=== PATIENT | female | born 1940 | race Caucasian/White ===

== ENCOUNTER 2018-03-16 21:17 | Inpatient (IN) | payer OTHER ==
[~2018-03-16] VITALS: Ht 152.4 cm; Wt 109.9 kg
--- NOTE | 2018-03-16 21:17 | NUR ---
TO BED 6 BIB PARAMEDICS C/O SOB SINCE EARLIER TODAY. PER EMS REPORT PT O2 SAT 88% ON RA. PLACE PT ON CARDIAC MONITORING, CONTINUOUS POX, O2@15L/NONREBREATHER MASK. LUNG SOUNDS DEMINISHED BILATERALLY. ER MD AT BEDSIDE TO EVAL PT WITH ORDERS RECEIVED. WILL CARRY OUT ORDERS.
--- NOTE | 2018-03-16 21:36 | NUR ---
RT AT BEDSIDE TO PLACE PT ON BIPAP.
--- NOTE | 2018-03-16 21:43 | NUR ---
EKG AT BEDSIDE.
[2018-03-16 21:45] VITALS: BP 157/72
--- NOTE | 2018-03-16 21:45 | NUR ---
PT REC'D ON NRB MASK 15LPM. PT ALERT AND AWAKE, SOB NOTED. EXPIRATORY WHEEZES HEARD ON AUSCULTATION. PT PLACED ON BIPAP PER DR PINO REQUEST. ALARMS ARE SET AND AUDIBLE. BIPAP PLUGGED INTO RED OUTLET. AMBU BAG BEDSIDE. WILL CONTINUE TO MONITOR Addendum: 03/16/18 at 2318 by AUGUSTIN WISE RT Amended: Links added.
--- NOTE | 2018-03-16 21:45 | NUR ---
PT ON BIPAP 15/5, RATE-16, FIO2-70%. WILL CONTINUE TO MONITOR PT CLOSELY. PT FAMILY MEMBERS AT BEDSIDE.
--- NOTE | 2018-03-16 21:45 | NUR ---
Poncho donald in EDM - 03/16/18 at 2154 by AQUILINO PT ON BIPAP 15/, RATE-60, FIO2-70%. WILL CONTINUE TO MONITOR PT CLOSELY. PT FAMILY MEMBERS AT BEDSIDE.
[2018-03-16 22:03] LABS: BASOPHILS % (AUTO) 0.6 % (0.0-2.0); EOSINOPHILS % (AUTO) 1.5 % (0.0-6.0); HEMATOCRIT 38 % (33-45); HEMOGLOBIN 12.2 g/dL (11.5-14.8); LYMPHOCYTES # (AUTO) 1.4 /CMM (0.8-4.8); MEAN CORPUSCULAR HEMOGLOBIN 28 PG (26.0-33.0); MEAN CORPUSCULAR HGB CONC 32 g/dl (31.0-36.0); MEAN CORPUSCULAR VOLUME 86 fL (82-100); MONOCYTES # (AUTO) 0.4 /CMM (0.1-1.30); MONOCYTES % (AUTO) 6.3 % (2.0-12.0); NEUTROPHILS # (AUTO) 4.6 /CMM (1.8-8.9); NEUTROPHILS % (AUTO) 70.6 % (43.0-81.0); PLATELET COUNT (AUTO) 145 /CMM (150-450); RDW COEFFICIENT OF VARIATION 16.1 (11.5-15.0); RED BLOOD CELL COUNT(AUTO) 4.42 MIL/uL (4.0-5.2); WHITE BLOOD COUNT (AUTO) 6.6 K/uL (4.3-11.0)
[2018-03-16 22:17] LABS: CALCIUM, SERUM 8.4 mg/dL (8.5-10.1); CARBON DIOXIDE 30 mmol/L (21-32); CHLORIDE 99 mmol/L (98-107); CREATININE 1.1 mg/dL (0.6-1.3); GLUCOSE 139 mg/dL (74-106); POTASSIUM 3.9 mmol/L (3.5-5.1); SODIUM SERUM 136 mmol/L (136-145); UREA NITROGEN, BLOOD 18 mg/dL (7-18)
[2018-03-16 22:27] LABS: TROPONIN I < 0.017 ng/mL (0.00-0.056)
[2018-03-16 22:29] LABS: ALANINE AMINOTRANSFERASE 18 U/L (12-78); ALBUMIN 3.1 g/dL (3.4-5.0); ALKALINE PHOSPHATASE 83 U/L (46-116); ASPARTATE AMINOTRANSFERASE 25 U/L (15-37); B-TYPE NATRIURETIC PEPTIDE 3056 PG/ML (0-125); BILIRUBIN,DIRECT 0.1 mg/dL (0.0-0.2); BILIRUBIN,TOTAL 0.6 mg/dL (0.2-1.0); TOTAL PROTEIN, SERUM 7.2 g/dL (6.4-8.2)
[2018-03-16 22:30] LABS: INR 1.54 (0.87-1.13)
[2018-03-16] MEDS ORDERED: ACETAMINOPHEN 325 MG TABLET PO ONE (22:30)
--- NOTE | 2018-03-16 22:43 | NUR ---
ABG DONE. RT REMOVED PT FROM BIPAP PER ER MD ORDER. WILL CONTINUE TO MONITOR PT CLOSELY.
--- NOTE | 2018-03-16 22:45 | NUR ---
ABG GIVEN TO DR BOUCHER. BIPAP TAKEN OFF AND PLACED PT ON 4LNC PER DR BOUCHER REQUEST Addendum: 03/17/18 at 0426 by AUGUSTIN WISE RT Amended: Links added.
--- NOTE | 2018-03-16 22:45 | NUR ---
PT TRANSPORTED TO RADIOLOGY FOR CT PULMONARY ANGIOGRAM.
[2018-03-16 22:46] LABS: ABG BASE EXCESS 2.1 mmol/L; ABG OXYGEN SATURATION 98.9 % (92.0-98.5); ABG PCO2 42.1 mmHg (35.0-45.0); ABG PH 7.421 (7.350-7.450); ABG PO2 236.9 mmHg (75.0-100.0); AaDO2 216.9 mmHg; COHb 0.3 % (0.5-1.5); MetHb 0.5 % (0.0-1.5); O2Hb 98.1 % (94.0-97.0); SITE, ABG Right Radial; VENT MODE, BG Bipap 15/5 BR16 70%
[2018-03-16] MEDS ORDERED: IOHEXOL-350 100 ML VIAL IV ONE (22:47)
[2018-03-16] MEDS ORDERED: CT SWABBABLE VALVE TRANS SET 1 EA INFUS.SET MC ONE (22:47)
[2018-03-16] MEDS ORDERED: IV NS 0.9% 250 ML IV ONE (22:48)
[2018-03-16] MEDS ORDERED: ACETAMINOPHEN ES 500 MG TABLET ONE (22:49)
--- NOTE | 2018-03-17 00:02 | NUR ---
REPORT CALLED TO QUALITY CONTROL ANALYSTPAPITO MORSE. WILL TRANSPORT PT VIA ACLS PROTOCOL.
--- NOTE | 2018-03-17 00:05 | NUR ---
ER TALKING TO TED LANCASTER REGARDING PT ADMISSION. WILL TRANSPORT PT VIA ACLS PROTOCOL.
--- NOTE | 2018-03-17 00:10 | NUR ---
RN NOTES RECEIVED PT. FROM ER WITH DX. OF SOB, A/OX3, PRYDEINIG/JAMAICAN SPEAKING, FAMILY AT BEDSIDE, A-FIB ON TELE MONITOR , ADMISSION INSTRUCTION WAS RENDERED, CALL LIGHT WITHIN REACH, [id number], CONTINUE TO MONITOR
[2018-03-17 00:20] VITALS: BP 136/63
[2018-03-17] MEDS ORDERED: Z GUARD REMEDY 2 OZ OINT TP PRN (00:30)
[2018-03-17] MEDS ORDERED: HYDROCODONE/APAP 5/325MG 1 EACH TABLET PO PRN (00:30)
[2018-03-17] MEDS ORDERED: MAGNESIUM HYDROXIDE 30 ML UDC PO PRN (00:30)
[2018-03-17] MEDS ORDERED: MAG HYDROX/AL HYDROX/SIMETH 30 ML UDC PO PRN (00:30)
[2018-03-17] MEDS ORDERED: ONDANSETRON HCL/PF 4 MG/2 ML VIAL IVP PRN (00:30)
[2018-03-17] MEDS ORDERED: WARF4TAB72 PO (00:52)
[2018-03-17] MEDS ORDERED: METO-356 PO (00:52)
[2018-03-17] MEDS ORDERED: LEVO137T24 PO (00:52)
[2018-03-17 04:00] VITALS: BP 142/84
[2018-03-17] MEDS: ACETAMINOPHEN 325 MG TABLET PO PRN (05:59)
--- NOTE | 2018-03-17 06:09 | NUR ---
RN NOTES COMPLAINED OF HEADACHE-TYLENOL 650MG PO GIVEN ORDERED, V/S STABLE
--- NOTE | 2018-03-17 06:27 | NUR ---
RN NOTES AWAKE, DENIES PAIN, NO SOB, MORNING CARE RENDERED, PT. NEEDS ATTENDED
--- NOTE | 2018-03-17 07:49 | NUR ---
TRACK RIDER OPENING NOTES RECEIVED PT FROM NIGHTSOHFT NURSE IN STABLE CONDITION. PT IS A/O X3. SHE DENIES AN SOB OR DIFFICULTY BREATHING AT THIS TIME. NO OF ACUTE DISTRESS NOTED. BREATHING IS EVEN AND UNLABORED. PT ON 2L VIA NC AND SATING AT ABOVE 92%. SHE COMPLAINS OF A SLIGHT HEADACHE AND WAS GIVEN TYLENOL BY THE NIGHTSOHFT NURSE. NORCO 5/325 OFFERED TO THE PT HOWEVER SHE REFUSES MEDICATION STATING "I CAN TOLERATE IT FOR NOW. I DON'T WANT TO TAKE TOO MANY PILLS". PT INSTRUCTED TO NOTIFY ME IF PAIN BECOMES INTOLERABLE AND/OR IF/WHEN SHE WOULD LIKE THE MEDICATION. PT VERBALIZED UNDERSTANDING AND IN COMPLIANCE. IVS TO RIGHT HAND AND LEFT AC ARE BOTH NOTED TO BE PATENT AND INTACT, HL. NO REDNESS OR SIGNS OF INFILTRATION NOTED. BED IN LOW LOCKED POSITION, SIDE RAILS UP X2, CALL LIGHT WITHIN REACH. WILL CONTINUE TO MONITOR Addendum: 03/17/18 at 1028 by CODY KAPADIA RN PT ANGELA IN TELE MONITOR WITH A HR OF 67
[2018-03-17 08:00] VITALS: BP 141/69
[2018-03-17 09:07] LABS: PHOSPHORUS 4.1 mg/dL (2.5-4.9)
[2018-03-17] MEDS: LEVOTHYROXINE SODIUM 137 MCG TABLET PO SCH (09:41)
[2018-03-17] MEDS: FUROSEMIDE 40 MG/4 ML VIAL IV SCH ×3 (09:43→17:06)
[2018-03-17] MEDS: METOPROLOL SUCCINATE 25 MG TAB.SR.24H PO SCH (09:44)
[2018-03-17 16:00] VITALS: BP 118/78
[2018-03-17] MEDS ORDERED: RIVAROXABAN 10 MG TABLET PO SCH (17:00)
[2018-03-17] MEDS: RIVAROXABAN 15 MG TABLET PO SCH (17:12)
--- NOTE | 2018-03-17 18:40 | NUR ---
QUALITY ASSURANCE ANALYST CLOSING NOTES PT REMAINS STABLE. ALL NEEDS WERE MET DURING SHIFT AND ORDERS CARRIED OUT ACCORDINGLY. ALL DUE MEDS. GIVEN. NO ACUTE CHANGES IN CONDITION THROUGHOUT SHIFT. NO SOB NOTED AT THIS TIME. VITALS REMAIN STABLE. SHE REMAINS AFIB ON THE TELE MONITOR. SAFETY MEASURES REMAIN IN PLACE. WILL ENDORSE TO NIGHTSHIFT NURSE FOR AILYN
--- NOTE | 2018-03-17 19:26 | NUR ---
INFORMATICS DEVELOPER OPENING NOTES PT A/O X3 .FAMILY AT THE BED SITE.NO SOB NOTED AT THIS TIME, NO DISTRESS NOTED ,VITALS ARE STABLE. PT DENIES PAIN AT THIS TIME. AFIB ON THE TELE MONITOR. SAFETY MEASURES IN PLACE.CALL LIGHT WITHIN REACH. WILL CONTINUE TO MONITOR
[2018-03-17 20:00] VITALS: BP 101/57
--- NOTE | 2018-03-17 20:09 | NUR ---
Spoke with patient, she is alert, lives locally with her daughter. She ambulates with a cane as needed, she is semi-independent with adl's. Has no homehealth reported. Pcp is Dr. Kaley Kaiser in [place]. Has good family support. Her family will provide ride when discharge. Addendum: 03/17/18 at 2009 by LEV HENLEY RN Amended: Links added.
[2018-03-18] VITALS: BP 103/56
[2018-03-18 04:04] VITALS: BP 157/77
[2018-03-18 06:56] LABS: BASOPHILS % (AUTO) 0.5 % (0.0-2.0); EOSINOPHILS % (AUTO) 0.2 % (0.0-6.0); HEMATOCRIT 42 % (33-45); HEMOGLOBIN 13.4 g/dL (11.5-14.8); LYMPHOCYTES % (AUTO) 34.7 % (20.0-44.0); MEAN CORPUSCULAR HEMOGLOBIN 28 PG (26.0-33.0); MEAN CORPUSCULAR HGB CONC 32 g/dl (31.0-36.0); MEAN CORPUSCULAR VOLUME 86 fL (82-100); MONOCYTES # (AUTO) 0.6 /CMM (0.1-1.30); MONOCYTES % (AUTO) 11.2 % (2.0-12.0); NEUTROPHILS % (AUTO) 53.4 % (43.0-81.0); PLATELET COUNT (AUTO) 126 /CMM (150-450); RDW COEFFICIENT OF VARIATION 16.8 (11.5-15.0); WHITE BLOOD COUNT (AUTO) 5.6 K/uL (4.3-11.0)
--- NOTE | 2018-03-18 07:03 | NUR ---
RN CLOSING NOTES PT A/O X2 .NO SOB NOTED AT THIS TIME, NO DISTRESS NOTED ,O2 SATURATION 97 ON 4L NC. PT DENIES PAIN AT THIS TIME. AFIB ON THE TELE MONITOR WITH HR 87. SAFETY MEASURES IN PLACE.CALL LIGHT WITHIN REACH. WILL ENDORSE TO NEXT SHIFT
[2018-03-18 07:22] LABS: ALANINE AMINOTRANSFERASE 19 U/L (12-78); ALBUMIN 3.2 g/dL (3.4-5.0); ALKALINE PHOSPHATASE 80 U/L (46-116); ASPARTATE AMINOTRANSFERASE 26 U/L (15-37); BILIRUBIN,TOTAL 0.5 mg/dL (0.2-1.0); CARBON DIOXIDE 37 mmol/L (21-32); CHLORIDE 97 mmol/L (98-107); CREATININE 1.2 mg/dL (0.6-1.3); GLUCOSE 107 mg/dL (74-106); MAGNESIUM 1.8 mg/dL (1.8-2.4); PHOSPHORUS 4.6 mg/dL (2.5-4.9); POTASSIUM 3.4 mmol/L (3.5-5.1); SODIUM SERUM 138 mmol/L (136-145); TOTAL PROTEIN, SERUM 7.9 g/dL (6.4-8.2); UREA NITROGEN, BLOOD 19 mg/dL (7-18)
[2018-03-18 07:29] LABS: TROPONIN I < 0.017 ng/mL (0.00-0.056)
[2018-03-18 07:34] LABS: CHOLESTEROL 167 mg/dL (<200); HDL CHOLESTEROL 57 mg/dL (40-60); LDL 102 mg/dL (0-99); THYROID STIMULATING HORMONE 0.541 uIU/mL (0.358-3.74); TRIGLYCERIDES 64 mg/dL (30-150)
--- NOTE | 2018-03-18 07:41 | NUR ---
HEARING AID MECHANIC OPENING NOTE RECEIVED BEDSIDE SBAR REPORT ON THE PATIENT. PATIENT IS A/O X3, MALTESE SPEAKING, AWAKE AND RESPONSIVE IN BED. BED IS LOCKED IN LOWEST POSITION, SIDE RAILS UP X3, BED ALARM IS ON. CALL LIGHT WITHIN REACH. PATIENT EDUCATED TO USE THE CALL LIGHT TO CALL FOR ASSISTANCE AND VERBALIZED UNDERSTANDING. EXTERNAL NOVELTY WORKER READING AFIB 86. CHEST RISING EQUALLY/BILATERALLY. SPO2 96% ON 2L O2 VIA NC. ALL NEEDS ARE MET. WILL CONTINUE TO ASSES/MONITOR THROUGHOUT THE SHIFT.
[2018-03-18 08:00] VITALS: BP 125/60
[2018-03-18 08:20] LABS: CALCIUM, SERUM 9.3 mg/dL (8.5-10.1)
[2018-03-18] MEDS: METOPROLOL SUCCINATE 25 MG TAB.SR.24H PO SCH (09:00)
[2018-03-18] MEDS: LEVOTHYROXINE SODIUM 137 MCG TABLET PO SCH (09:00)
[2018-03-18] MEDS: POTASSIUM CHLORIDE 20 MEQ TAB.PRT.SR PO SCH ×3 (09:05→11:34)
[2018-03-18] MEDS: FUROSEMIDE 40 MG/4 ML VIAL IV SCH ×3 (09:06→17:31)
[2018-03-18 16:00] VITALS: BP 102/63
--- NOTE | 2018-03-18 16:53 | NUR ---
RECEIVED TELEPHONE ORDER FOR PHYSICIAN CONSULT WITH ID. READ BACK AND VERIFIED.
[2018-03-18] MEDS: SOD FERRIC GLUC 125 MG in IV NS 0.9% 100 ML IV SCH (17:31)
[2018-03-18] MEDS: RIVAROXABAN 15 MG TABLET PO SCH (17:32)
[2018-03-18] MEDS: DOXYCYCLINE HYCLATE (100 MG) 100 MG TABLET PO SCH (19:27)
--- NOTE | 2018-03-18 19:30 | NUR ---
MS RN OPENING NOTES PATIENT IS A/O X3, GRANDSON AT THE BEDSIDE.PT ON NC 4L SATURATION 98%. NO SOB S/S RESPIRATORY DISTRESS OR PAIN AT THIS TIME. BED IS LOCKED IN LOWEST POSITION, SIDE RAILS UP X2, BED ALARM IS ON. CALL LIGHT WITHIN REACH. WILL CONTINUE TO MONITOR.
[2018-03-18] MEDS: AZTREONAM 1 G in IV NS 0.9% 100 ML IV SCH (19:32)
[2018-03-18 20:00] VITALS: BP 104/52
--- NOTE | 2018-03-18 20:02 | NUR ---
MS RN CLOSING NOTE GAVE BEDSIDE SBAR REPORT ON THE PATIENT. PATIENT IS A/O X3, SLOVENIAN SPEAKING, AWAKE AND RESPONSIVE IN BED. BED IS LOCKED IN LOWEST POSITION, SIDE RAILS UP X3, BED ALARM IS ON. CALL LIGHT WITHIN REACH. PATIENT EDUCATED TO USE THE CALL LIGHT TO CALL FOR ASSISTANCE AND VERBALIZED UNDERSTANDING. CHEST RISING EQUALLY/BILATERALLY. SPO2 99% ON ROOM AIR. DENIES PAIN/DISCOMFORT AT THIS TIME. ALL NEEDS ARE MET. ENDORSED TO THE MEDICAL ART THERAPIST NURSE FOR AILYN.
[2018-03-19] MEDS: AZTREONAM 1 G in IV NS 0.9% 100 ML IV SCH ×2 (04:23→13:05)
--- NOTE | 2018-03-19 06:45 | NUR ---
MS RN CLOSING NOTES PATIENT IS A/O X3, AUSTRIAN SPEAKING.PT ON NC 4L SATURATION 97%. NO SOB S/S RESPIRATORY DISTRESS OR PAIN AT THIS TIME. BED IS LOCKED IN LOWEST POSITION, SIDE RAILS UP X2, BED ALARM IS ON. CALL LIGHT WITHIN REACH. WILL ENDORSE TO NEXT SHIFT FOR AILYN.
--- NOTE | 2018-03-19 07:12 | NUR ---
MS RN OPENING NOTE RECEIVED BEDSIDE SBAR REPORT ON THE PATIENT. PATIENT IS A/O X3, FIJIAN SPEAKING, AWAKE AND RESPONSIVE IN BED. BED IS LOCKED IN LOWEST POSITION, SIDE RAILS UP X3, BED ALARM IS ON. CALL LIGHT WITHIN REACH. PATIENT EDUCATED TO USE THE CALL LIGHT TO CALL FOR ASSISTANCE AND VERBALIZED UNDERSTANDING. SPO2 96% ON 2L O2 VIA NC. ALL NEEDS ARE MET. WILL CONTINUE TO ASSES/MONITOR THROUGHOUT THE SHIFT.
[2018-03-19 07:45] LABS: BASOPHILS % (AUTO) 0.6 % (0.0-2.0); EOSINOPHILS % (AUTO) 3.2 % (0.0-6.0); HEMATOCRIT 40 % (33-45); HEMOGLOBIN 12.8 g/dL (11.5-14.8); LYMPHOCYTES # (AUTO) 2.3 /CMM (0.8-4.8); LYMPHOCYTES % (AUTO) 42.3 % (20.0-44.0); MEAN CORPUSCULAR HEMOGLOBIN 28 PG (26.0-33.0); MEAN CORPUSCULAR HGB CONC 32 g/dl (31.0-36.0); MEAN CORPUSCULAR VOLUME 87 fL (82-100); MONOCYTES # (AUTO) 0.7 /CMM (0.1-1.30); MONOCYTES % (AUTO) 13.5 % (2.0-12.0); NEUTROPHILS # (AUTO) 2.2 /CMM (1.8-8.9); NEUTROPHILS % (AUTO) 40.4 % (43.0-81.0); PLATELET COUNT (AUTO) 141 /CMM (150-450); RDW COEFFICIENT OF VARIATION 16.1 (11.5-15.0); RED BLOOD CELL COUNT(AUTO) 4.64 MIL/uL (4.0-5.2); WHITE BLOOD COUNT (AUTO) 5.4 K/uL (4.3-11.0)
[2018-03-19 08:00] VITALS: BP 112/47
[2018-03-19 08:01] LABS: ALANINE AMINOTRANSFERASE 20 U/L (12-78); ALKALINE PHOSPHATASE 69 U/L (46-116); ASPARTATE AMINOTRANSFERASE 29 U/L (15-37); BILIRUBIN,TOTAL 0.5 mg/dL (0.2-1.0); CALCIUM, SERUM 8.7 mg/dL (8.5-10.1); CARBON DIOXIDE 35 mmol/L (21-32); CHLORIDE 99 mmol/L (98-107); CREATININE 1.7 mg/dL (0.6-1.3); GLUCOSE 115 mg/dL (74-106); MAGNESIUM 1.7 mg/dL (1.8-2.4); PHOSPHORUS 3.7 mg/dL (2.5-4.9); POTASSIUM 4.1 mmol/L (3.5-5.1); SODIUM SERUM 138 mmol/L (136-145); TOTAL PROTEIN, SERUM 7.4 g/dL (6.4-8.2); UREA NITROGEN, BLOOD 34 mg/dL (7-18)
[2018-03-19] MEDS: DOXYCYCLINE HYCLATE (100 MG) 100 MG TABLET PO SCH ×2 (09:31→21:01)
[2018-03-19] MEDS: LEVOTHYROXINE SODIUM 137 MCG TABLET PO SCH (09:31)
[2018-03-19] MEDS: METOPROLOL SUCCINATE 25 MG TAB.SR.24H PO SCH (09:32)
[2018-03-19] MEDS ORDERED: GUAIFENESIN 300 MG/15 ML UDC PO PRN (10:00)
[2018-03-19] MEDS ORDERED: MAGNESIUM OXIDE 400 MG TABLET PO ONE (12:00)
[2018-03-19 16:00] VITALS: BP 95/73
[2018-03-19 16:33] LABS: ABG BASE EXCESS 9.5 mmol/L; ABG PH 7.413 (7.350-7.450); ABG PO2 93.7 mmHg (75.0-100.0); AaDO2 95.7 mmHg; COHb 0.5 % (0.5-1.5); MetHb 0.4 % (0.0-1.5); O2Hb 96.1 % (94.0-97.0); SITE, ABG Right Brachial; VENT MODE, BG 4L NC
[2018-03-19] MEDS: LACTOBACILLUS RHAMNOSUS GG 1 EACH CAP.SPRINK PO SCH (17:42)
[2018-03-19] MEDS: RIVAROXABAN 15 MG TABLET PO SCH (17:42)
[2018-03-19] MEDS: SOD FERRIC GLUC 125 MG in IV NS 0.9% 100 ML IV SCH (17:42)
--- NOTE | 2018-03-19 19:01 | NUR ---
MS RN CLOSING NOTE GAVE BEDSIDE SBAR REPORT ON THE PATIENT. PATIENT IS A/O X3, SERBIAN SPEAKING, AWAKE AND RESPONSIVE IN BED. BED IS LOCKED IN LOWEST POSITION, SIDE RAILS UP X3, BED ALARM IS ON. CALL LIGHT WITHIN REACH. PATIENT EDUCATED TO USE THE CALL LIGHT TO CALL FOR ASSISTANCE AND VERBALIZED UNDERSTANDING. CHEST RISING EQUALLY/BILATERALLY. SPO2 99% ON ROOM AIR. DENIES PAIN/DISCOMFORT AT THIS TIME. ALL NEEDS ARE MET. ENDORSED TO THE HOSPICE HOME CARE COORDINATOR NURSE FOR AILYN.
--- NOTE | 2018-03-19 19:15 | NUR ---
MS RN OPENING NOTES PATIENT IS A/O X3, FAMILY AT THE BEDSIDE.PT ON NC 2L SATURATION 98%. NO SOB S/S RESPIRATORY DISTRESS OR PAIN AT THIS TIME. BED IS LOCKED IN LOWEST POSITION, SIDE RAILS UP X2, BED ALARM IS ON. CALL LIGHT WITHIN REACH. WILL CONTINUE TO MONITOR.
[2018-03-19 20:00] VITALS: BP 122/80
[2018-03-20] MEDS: ACETAMINOPHEN 325 MG TABLET PO PRN (03:23)
--- NOTE | 2018-03-20 06:51 | NUR ---
MS RN CLOSING NOTES PATIENT IS A/O X3.PT ON NC 2L SATURATION 98%. NO SOB S/S RESPIRATORY DISTRESS OR PAIN AT THIS TIME. BED IS LOCKED IN LOWEST POSITION, SIDE RAILS UP X2, BED ALARM IS ON. CALL LIGHT WITHIN REACH.NEW IV LINE INSERTED LAC # 20. PREVIOUS LINE REMOVED DUE TO INFILTRATION. WILL ENDORSE TO NEXT SHIFT FOR AILYN .
--- NOTE | 2018-03-20 07:10 | NUR ---
MS/RN OPENING NOTE PATIENT ALERT AND ORIENTED X4. DENIES SOB. RESPIRATION REGULAR AND UNLABORED. DENIES PAIN. PATIENT IN NO APPARENT DISTRESS. RAC G 20 PATENT AND SALINE LOCKED. BED LOW AND LOCKED. SIDE RAILS UP X3. CALL LIGHT WITHIN REACH. WILL CONTINUE TO MONITOR.
[2018-03-20] MEDS: DOXYCYCLINE HYCLATE (100 MG) 100 MG TABLET PO SCH ×2 (08:26→20:20)
[2018-03-20] MEDS: LACTOBACILLUS RHAMNOSUS GG 1 EACH CAP.SPRINK PO SCH ×2 (08:26→16:20)
[2018-03-20] MEDS: LEVOTHYROXINE SODIUM 137 MCG TABLET PO SCH (08:28)
[2018-03-20] MEDS: METOPROLOL SUCCINATE 25 MG TAB.SR.24H PO SCH (08:30)
[2018-03-20 09:33] VITALS: BP 87/55
[2018-03-20] MEDS: SOD FERRIC GLUC 125 MG in IV NS 0.9% 100 ML IV SCH (15:18)
[2018-03-20] MEDS: RIVAROXABAN 15 MG TABLET PO SCH (16:21)
[2018-03-20 16:30] VITALS: BP 120/63
[2018-03-20 18:00] VITALS: BP 121/63
--- NOTE | 2018-03-20 18:32 | NUR ---
MS/RN CLOSING NOTE PATIENT ALERT AND ORIENTED X4. DENIES SOB. PATIENT IS ON OXYGEN AT 2L/MIN VIA NC. RESPIRATION REGULAR AND UNLABORED. PATIENT IN NO APPARENT DISTRESS. RAC G 20 PATENT AND SALINE LOCKED. PATIENT IS ON CARDIAC CIET AND TOLERATES DIET WELL. AMBULATES WITH FWW AND STAND BY BY ASSIST. VERBAL CUES ARE GIVEN TO KEEP SAFETY AWARENESS HIGH. PATIENT IS ENCOURAGED TO ELEVATE THE LEGS ON A PILLOW TO REDUCE BLE EDEMA. GOOD AND GENTLE SKIN CARE RENDERED. KEPT CLEAN, DRY AND COMFORTABLE. ALL NEEDS ATTENDED AND ANTICIPATED. BED LOW AND LOCKED. SIDE RAILS UP X3. CALL LIGHT WITHIN REACH. WILL ENDORSE TO CONTINUOUS MINER.
--- NOTE | 2018-03-20 19:20 | NUR ---
RN OPENING NOTES PT AWAKE AND RESTING IN CHAIR AT BEDSIDE. BLE ELEVATED. FAMILY AT BEDSIDE. NO COMPLAINTS OF PAIN, SOB, OR DISTRESS AT THIS TIME. PT HAS A RIGHT AC #20 INTACT AND PATENT. PT IS AMBULATORY WITH ASSIST. SAFETY PRECAUTIONS IN PLACE, BED IN LOWEST LOCKED POSITION, X2 SIDE RAILS UP, ANS CALL LIGHT WITHIN REACH. WILL CONTINUE TO MONITOR.
[2018-03-20] MEDS: IPRATROPIUM NEB FS 0.5 MG/2.5 ML AMPUL.NEB NEB SCH (19:45)
[2018-03-20 20:00] VITALS: BP 127/61
--- NOTE | 2018-03-20 22:32 | NUR ---
RN NOTES ACCIDENTLY PULLED VIBRAMYCIN FROM OMNICELL. DID NOT TAKE FROM OMNICELL AND DID NOT CANCEL. CURRENT COUNT 2 CAPSULES OF VIBRAMYCIN.
[2018-03-20] MEDS ORDERED: IBUPROFEN 400 MG TABLET ONE (23:04)
[2018-03-21] MEDS: IPRATROPIUM NEB FS 0.5 MG/2.5 ML AMPUL.NEB NEB SCH ×3 (01:32→13:59)
--- NOTE | 2018-03-21 06:34 | NUR ---
RN CLOSING NOTES PT AWAKE AND RESTING IN CHAIR AT BEDSIDE. BLE ELEVATED. FAMILY AT BEDSIDE. NO COMPLAINTS OF PAIN, SOB, OR DISTRESS OVERNIGHT. PT HAS A RIGHT AC #20 INTACT AND PATENT. PT IS AMBULATORY WITH ASSIST. SAFETY PRECAUTIONS IN PLACE, BED IN LOWEST LOCKED POSITION, X2 SIDE RAILS UP, ANS CALL LIGHT WITHIN REACH. WILL ENDORSE TO DAY SHIFT NURSE FOR CONTINUITY OF CARE.
[2018-03-21 07:04] LABS: CALCIUM, SERUM 9.3 mg/dL (8.5-10.1); CARBON DIOXIDE 37 mmol/L (21-32); CHLORIDE 102 mmol/L (98-107); CREATININE 1.1 mg/dL (0.6-1.3); GLUCOSE 102 mg/dL (74-106); POTASSIUM 4.7 mmol/L (3.5-5.1); SODIUM SERUM 140 mmol/L (136-145); UREA NITROGEN, BLOOD 27 mg/dL (7-18)
[2018-03-21 08:00] VITALS: BP 120/70
--- NOTE | 2018-03-21 08:07 | NUR ---
ms rn received on bed, awake,alert,oriented x3,not in any form of distress, respirations even and unlabored,no sob noted, lungs are diminished, abdomen soft,positive bowel sounds, denies pain at this time,all needs attended.
--- NOTE | 2018-03-21 09:50 | NUR ---
ms ortez breakfast served, due meds given,tolerated well.
[2018-03-21] MEDS: LACTOBACILLUS RHAMNOSUS GG 1 EACH CAP.SPRINK PO SCH ×2 (10:01→17:06)
[2018-03-21] MEDS: DOXYCYCLINE HYCLATE (100 MG) 100 MG TABLET PO SCH (10:01)
[2018-03-21] MEDS: METOPROLOL SUCCINATE 25 MG TAB.SR.24H PO SCH (10:02)
[2018-03-21] MEDS: LEVOTHYROXINE SODIUM 137 MCG TABLET PO SCH (10:09)
--- NOTE | 2018-03-21 12:00 | NUR ---
MS RN WAS SEEN BY Mckenna CASILLAS/ ORDER TO GO HOME TODAY.
[2018-03-21 12:08] LABS: ABG BASE EXCESS 7.9 mmol/L; ABG OXYGEN SATURATION 91.2 % (92.0-98.5); ABG PCO2 56.8 mmHg (35.0-45.0); ABG PO2 58.8 mmHg (75.0-100.0); AaDO2 22.9 mmHg; COHb 0.5 % (0.5-1.5); MetHb 0.6 % (0.0-1.5); O2Hb 90.2 % (94.0-97.0); SITE, ABG Right Radial; VENT MODE, BG ROOM AIR
[2018-03-21] MEDS ORDERED: DOXY100T2 PO (12:42)
[2018-03-21] MEDS ORDERED: LACT1CAP72 PO (12:42)
[2018-03-21] MEDS ORDERED: Rivaroxaban PO (12:42)
[2018-03-21 16:00] VITALS: BP 108/69
[2018-03-21] MEDS: SOD FERRIC GLUC 125 MG in IV NS 0.9% 100 ML IV SCH (17:17)
--- NOTE | 2018-03-21 17:20 | NUR ---
MS RN WAS DISCHARGE HOME ACCOMPANIED BY FAMILY MEMBERS.ALL NEEDS ATTENDED.
[2018-03-21] MEDS: RIVAROXABAN 15 MG TABLET PO SCH (17:23)
== END 2018-03-21 18:00 | disposition home health service (06) | DRG 291 ==
LOC: ER 21:19 → TELE 03-17 → MED 03-18 10:48
PROVIDERS: ADMIT Nurse Practitioner Acute Care; ATTEND Nurse Practitioner Acute Care
DX: I11.0 Hypertensive heart disease with heart failure (principal); J96.21 Acute and chronic respiratory failure with hypoxia; E66.2 Morbid (severe) obesity with alveolar hypoventilation; Q85.9 Phakomatosis, unspecified; E44.1 Mild protein-calorie malnutrition; D68.59 Other primary thrombophilia; L03.115 Cellulitis of right lower limb; L03.116 Cellulitis of left lower limb; Z68.41 Body mass index [BMI] 40.0-44.9, adult; I50.33 Acute on chronic diastolic (congestive) heart failure; E03.9 Hypothyroidism, unspecified; I48.2 Chronic atrial fibrillation; Z79.01 Long term (current) use of anticoagulants; E88.09 Other disorders of plasma-protein metabolism, not elsewhere classified; G72.9 Myopathy, unspecified; I70.0 Atherosclerosis of aorta; D50.9 Iron deficiency anemia, unspecified
CPT/HCPCS: 36415; 36600; 71045-TC; 80048-TC; 80053-TC; 80061-TC; 80076-TC; 82728-TC; 82803-TC; 83540-TC; 83605-TC; 83735-TC; 83880; 84100-TC; 84439-TC; 84443-TC; 84484-TC; 85025-TC; 85730-TC; 87040-TC; 87081-TC; 93307-TC; 93970-TC; 94799-TC; 97116-TC; 97530-TC; A4606; J1940; J2916; J3490; J7030; J7050; Q9967; Z7610

== ENCOUNTER 2018-10-18 14:16 | Inpatient (IN) | payer MEDICARE, BC ==
[~2018-10-18] VITALS: Ht 147.3 cm; Wt 98.9 kg
[~2018-10-18 14:16] MED LIST: DOXY100T2 PO; LACT1CAP72 PO; LEVO137T24 PO; METO-356 PO; Rivaroxaban PO
[2018-10-18] MEDS ORDERED: IV NS 0.9% 1,000 ML BAG IV ONE (18:00)
[2018-10-18 18:11] LABS: APPEARANCE,URINE Clear (CLEAR); BILIRUBIN,URINE Negative (NEGATIVE); BLOOD, URINE Moderate Ery/uL (NEGATIVE); COLOR,URINE Yellow (YELLOW); KETONES,URINE Negative (NEGATIVE); LEUKOCYTE ESTERASE ,URINE Small (NEGATIVE); NITRITE, URINE Negative (NEGATIVE); PH,URINE 5.5 (5.0-8.0); PROTEIN,URINE Negative (NEGATIVE); UGLUCOSE Negative (NEGATIVE); UROBILINOGEN,URINE 0.2 EU/dL (0.2)
[2018-10-18 18:33] LABS: BACTERIA,URINE Few /HPF (None Seen); SQUAMOUS EPITHELIAL CELL,UR Few /HPF (None Seen); URINE AMORPHOUS URATE Few /HPF (None Seen)
[2018-10-18 20:39] LABS: CALCIUM, SERUM 9.2 mg/dL (8.5-10.1); CARBON DIOXIDE 33 mmol/L (21-32); CHLORIDE 105 mmol/L (98-107); CREATININE 0.9 mg/dL (0.6-1.3); GLUCOSE 95 mg/dL (74-106); POTASSIUM 3.7 mmol/L (3.5-5.1); SODIUM SERUM 140 mmol/L (136-145); UREA NITROGEN, BLOOD 10 mg/dL (7-18)
[2018-10-18 20:40] LABS: ALANINE AMINOTRANSFERASE 10 U/L (12-78); ALBUMIN 3.2 g/dL (3.4-5.0); ALKALINE PHOSPHATASE 69 U/L (46-116); ASPARTATE AMINOTRANSFERASE 22 U/L (15-37); BILIRUBIN,DIRECT 0.1 mg/dL (0.0-0.2); BILIRUBIN,TOTAL 0.3 mg/dL (0.2-1.0)
[2018-10-18 20:41] LABS: TOTAL PROTEIN, SERUM 7.2 g/dL (6.4-8.2)
[2018-10-18 20:49] LABS: BASOPHILS # (AUTO) 0.1 /CMM (0.0-0.2); BASOPHILS % (AUTO) 1.2 % (0.0-2.0); EOSINOPHILS % (AUTO) 4.5 % (0.0-6.0); HEMATOCRIT 40 % (33-45); LYMPHOCYTES # (AUTO) 2.4 /CMM (0.8-4.8); LYMPHOCYTES % (AUTO) 33.6 % (20.0-44.0); MEAN CORPUSCULAR HGB CONC 33 g/dl (31.0-36.0); MEAN CORPUSCULAR VOLUME 87 fL (82-100); MONOCYTES # (AUTO) 0.7 /CMM (0.1-1.30); MONOCYTES % (AUTO) 10.2 % (2.0-12.0); NEUTROPHILS # (AUTO) 3.6 /CMM (1.8-8.9); NEUTROPHILS % (AUTO) 50.5 % (43.0-81.0); PLATELET COUNT (AUTO) 164 /CMM (150-450); RED BLOOD CELL COUNT(AUTO) 4.56 MIL/uL (4.0-5.2); WHITE BLOOD COUNT (AUTO) 7.1 K/uL (4.3-11.0)
[2018-10-18] MEDS ORDERED: WARF4TAB72 PO (22:57)
[2018-10-18] MEDS ORDERED: CHOL100040 PO (22:57)
[2018-10-18] MEDS ORDERED: LOTE5DRO3 EACHEYE (22:57)
[2018-10-18] MEDS ORDERED: BROM3DRO OP (22:57)
[2018-10-18] MEDS ORDERED: GENTAMICIN 120 MG in IV NS 0.9% 100 ML IV ONE (23:00)
[2018-10-18] MEDS ORDERED: GENTAMICIN 80 MG/2 ML VIAL ONE (23:04)
[2018-10-19] VITALS: BP 127/68
[2018-10-19] MEDS ORDERED: MAGNESIUM HYDROXIDE 30 ML UDC PO PRN (01:00)
[2018-10-19] MEDS ORDERED: HYDROCODONE/APAP 5/325MG 1 EACH TABLET PO PRN (01:00)
[2018-10-19] MEDS ORDERED: Z GUARD REMEDY 2 OZ OINT TP PRN (01:00)
[2018-10-19] MEDS ORDERED: ZOLPIDEM TARTRATE 5 MG TABLET PO PRN (01:00)
[2018-10-19] MEDS ORDERED: MAG HYDROX/AL HYDROX/SIMETH 30 ML UDC PO PRN (01:00)
[2018-10-19] MEDS ORDERED: CEFTRIAXONE 1 G in IV D5W 50 ML IV SCH (01:00)
[2018-10-19] MEDS ORDERED: ONDANSETRON HCL/PF 4 MG/2 ML VIAL IVP PRN (01:00)
[2018-10-19] MEDS ORDERED: PIPERACILLIN /TAZOBACTAM 3.375 G in IV D5W 50 ML IV SCH (06:00)
[2018-10-19] MEDS: LEVOTHYROXINE SODIUM 137 MCG TABLET PO SCH (07:41)
[2018-10-19 08:00] VITALS: BP_SYST 124; BP_SYST 129; BP_DIAS 50; BP_DIAS 80
[2018-10-19] MEDS ORDERED: FEE PK DOSING 1 MIN EA MC ONE (08:04)
[2018-10-19] MEDS: CHOLECALCIFEROL 1,000 UNIT TABLET (VIT D3) PO SCH (08:35)
[2018-10-19] MEDS: LACTOBACILLUS RHAMNOSUS GG 1 EACH CAP.SPRINK PO SCH ×2 (08:35→16:39)
[2018-10-19] MEDS: METOPROLOL SUCCINATE 25 MG TAB.SR.24H PO SCH (08:36)
[2018-10-19] MEDS: ACETAMINOPHEN 325 MG TABLET PO PRN (09:36)
[2018-10-19] MEDS: prednisoLONE ACET 1% OPHT DROP 5 ML BOTTLE EACHEYE SCH ×2 (12:41→16:57)
[2018-10-19 16:00] VITALS: BP 129/74
[2018-10-19] MEDS: GENTAMICIN 80 MG in IV D5W 50 ML IV SCH (16:39)
[2018-10-19] MEDS ORDERED: WARFARIN SODIUM 1 MG TABLET PO SCH (17:00)
[2018-10-19 19:56] VITALS: BP 138/79
[2018-10-19 20:00] VITALS: BP 138/79
[2018-10-19] MEDS: OPTH RIGHTEYE SCH (21:03)
[2018-10-19] MEDS: LOTEMAX 0.5% RIGHTEYE SCH (21:03)
[2018-10-19] MEDS ORDERED: EYE RIGHTEYE SCH (22:00)
[2018-10-19] MEDS ORDERED: PROLENSA 0.07% RIGHTEYE SCH (22:00)
[2018-10-20] MEDS: ACETAMINOPHEN 325 MG TABLET PO PRN (01:44)
[2018-10-20 06:35] LABS: BASOPHILS # (AUTO) 0.1 /CMM (0.0-0.2); BASOPHILS % (AUTO) 1.1 % (0.0-2.0); HEMATOCRIT 39 % (33-45); HEMOGLOBIN 12.5 g/dL (11.5-14.8); LYMPHOCYTES # (AUTO) 2.6 /CMM (0.8-4.8); LYMPHOCYTES % (AUTO) 36.9 % (20.0-44.0); MEAN CORPUSCULAR HGB CONC 33 g/dl (31.0-36.0); MEAN CORPUSCULAR VOLUME 86 fL (82-100); MONOCYTES # (AUTO) 0.8 /CMM (0.1-1.30); MONOCYTES % (AUTO) 11.1 % (2.0-12.0); NEUTROPHILS # (AUTO) 3.2 /CMM (1.8-8.9); NEUTROPHILS % (AUTO) 45.9 % (43.0-81.0); PLATELET COUNT (AUTO) 161 /CMM (150-450); RED BLOOD CELL COUNT(AUTO) 4.48 MIL/uL (4.0-5.2)
[2018-10-20 06:43] LABS: CHOLESTEROL 177 mg/dL (<200); HDL CHOLESTEROL 49 mg/dL (40-60); LDL 117 mg/dL (0-99); TRIGLYCERIDES 83 mg/dL (30-150)
[2018-10-20 06:45] LABS: CALCIUM, SERUM 8.9 mg/dL (8.5-10.1); CARBON DIOXIDE 32 mmol/L (21-32); CHLORIDE 106 mmol/L (98-107); CREATININE 0.9 mg/dL (0.6-1.3); GLUCOSE 103 mg/dL (74-106); MAGNESIUM 1.9 mg/dL (1.8-2.4); PHOSPHORUS 3.5 mg/dL (2.5-4.9); POTASSIUM 3.7 mmol/L (3.5-5.1); SODIUM SERUM 144 mmol/L (136-145); UREA NITROGEN, BLOOD 6 mg/dL (7-18)
[2018-10-20] MEDS: LEVOTHYROXINE SODIUM 137 MCG TABLET PO SCH (07:42)
[2018-10-20 08:00] VITALS: BP 142/87
[2018-10-20 08:41] VITALS: BP 142/87
[2018-10-20] MEDS: METOPROLOL SUCCINATE 25 MG TAB.SR.24H PO SCH (08:41)
[2018-10-20] MEDS: LACTOBACILLUS RHAMNOSUS GG 1 EACH CAP.SPRINK PO SCH (08:41)
[2018-10-20] MEDS: CHOLECALCIFEROL 1,000 UNIT TABLET (VIT D3) PO SCH (08:41)
[2018-10-20] MEDS: OPTH RIGHTEYE SCH ×2 (08:44→13:24)
[2018-10-20] MEDS: LOTEMAX 0.5% RIGHTEYE SCH ×2 (08:44→13:24)
[2018-10-20] MEDS: GENTAMICIN 80 MG in IV D5W 50 ML IV SCH (10:00)
[2018-10-20] MEDS ORDERED: SULF1TAB48 PO (13:50)
== END 2018-10-20 16:22 | disposition home or self-care (01) | DRG 690 ==
LOC: ER 14:16 → MED 22:30
DX: N39.0 Urinary tract infection, site not specified (principal); E03.9 Hypothyroidism, unspecified; I10 Essential (primary) hypertension; I48.91 Unspecified atrial fibrillation; K44.9 Diaphragmatic hernia without obstruction or gangrene; K57.30 Diverticulosis of large intestine without perforation or abscess without bleeding; Z79.01 Long term (current) use of anticoagulants; Z90.49 Acquired absence of other specified parts of digestive tract; N26.1 Atrophy of kidney (terminal); K42.9 Umbilical hernia without obstruction or gangrene; R31.29 Other microscopic hematuria; B95.4 Other streptococcus as the cause of diseases classified elsewhere
CPT/HCPCS: 36415; 72110-TC; 80048-TC; 80061-TC; 80076-TC; 81000-TC; 83605-TC; 83735-TC; 84100-TC; 85025-TC; 85610-TC; 85730-TC; 87040-TC; 87081-TC; 87086-TC; G0378; J0696; J1580; J2543; J7030; J7060